=== PATIENT | male | born 1960 | race American Indian/Alaskan Native ===

== ENCOUNTER 2017-03-23 21:29 | Emergency (ER) | payer BC, MEDICAID, OTHER ==
[2017-03-23] MEDS ORDERED: LORazepam 0.5 MG Tab PO ONE (21:30)
[2017-03-23 21:47] VITALS: BP 152/99
--- NOTE | 2017-03-23 22:38 | EDM.PDOC ---
ED HPI GENERAL MEDICAL PROBLEM - General Chief Complaint: Respiratory Problem Stated Complaint: HARD TO BREATH, [id number] Time Seen by Provider: 03/23/17 22:35 Source of Information: Reports: Patient History Limitations: Reports: No Limitations - History of Present Illness INITIAL COMMENTS - FREE TEXT/NARRATIVE: states tonight been feeling chest tightness and hard to breath denies prior h/o but had Fhx panic attacks. did feel similar 1 week ago was seen Dx with sinus given Rx felt somewhat better but tonight it feels different. Neck Pain Score (Numeric/FACES): 3 - Related Data Allergies Allergy/AdvReac Type Severity Reaction Status Date / Time duloxetine HCl Allergy Diarrhea Verified 03/23/17 21:47 [From Cymbalta] Home Meds: Home Meds Hydrochlorothiazide [Hydrochlorothiazide] 25 mg PO DAILY 07/06/14 [History] Lisinopril [Lisinopril] 40 mg PO DAILY 07/06/14 [History] Metoprolol Succinate [Toprol XL] 25 mg PO DAILY 07/06/14 [History] Amoxicillin/Potassium Clav [Amox-Clav 500-125 mg Tablet] 1 tab PO DAILY [History] Aspirin 81 mg PO DAILY 08/30/15 [History] Past Medical History - Past Health History Medical/Surgical History: Denies Medical/Surgical History Social & Family History - Tobacco Use Smoking Status *Q: Current Every Day Smoker Years of Tobacco use: 44 Packs/Tins Daily: 20 Used Tobacco, but Quit: No Second Hand Smoke Exposure: Yes - Caffeine Use Caffeine Use: Reports: Coffee, Soda - Alcohol Use Days Per Week of Alcohol Use: 0 - Recreational Drug Use Recreational Drug Use: No ED ROS GENERAL - Review of Systems Review Of Systems: ROS reveals no pertinent complaints other than HPI. ED EXAM, GENERAL - Physical Exam Exam: See Below Exam Limited By: No Limitations General Appearance: Alert, WD/WN, Anxious, Mild Distress Eye Exam: Bilateral Eye: PERRL (pupils ER @ 4mm) Ears: Hearing Grossly Normal Throat/Mouth: Normal Voice, No Airway Compromise Head: Atraumatic Neck: Non-Tender, Full Range of Motion Respiratory/Chest: No Respiratory Distress, No Accessory Muscle Use, Rhonchi Cardiovascular: Regular Rate, Rhythm GI/Abdominal: Soft, Non-Tender Neurological: Alert, Oriented, Normal Cognition, Normal Gait, No Motor/Sensory Deficits Psychiatric: Anxious Skin Exam: Warm, Dry, Normal Color Lymphatic: No Adenopathy Course - Vital Signs Last Recorded V/S: Last Vital Signs Temp 36.4 C 03/23/17 21:34 Pulse 83 03/23/17 21:34 Resp 20 03/23/17 21:34 BP 152/99 H 03/23/17 21:34 Pulse Ox 98 03/23/17 21:34 - Orders/Labs/Meds Orders: Active Orders 24 hr Category Date Time Status EKG 12 Lead [EKG Documentation Completion] [RC] STAT Care 03/23/17 22:34 Active Labs: Laboratory Tests 03/23/17 03/23/17 03/23/17 Range/Units 22:40 22:40 22:40 WBC 8.7 (5.0-10.0) 10^3/uL RBC 4.14 L (4.6-6.2) 10^6/uL Hgb 14.1 (14.0-18.0) g/dL Hct 40.6 (40.0-54.0) % MCV 98.1 (80-100) fL MCH 34.1 H (27.0-34.0) pg MCHC 34.7 (33.0-35.0) g/dL Plt Count 219 (150-450) 10^3/uL Neut % (Auto) 61.5 (42.2-75.2) % Lymph % (Auto) 26.0 (20.5-50.1) % [place] % (Auto) 10.4 H (2-8) % Eos % (Auto) 1.8 (1.0-3.0) % Baso % (Auto) 0.3 (0.0-1.0) % Add Manual Diff Yes Neutrophils % (Manual) 58 (42-75) % Band Neutrophils % 5 % Lymphocytes % (Manual) 26 (20-50) % Atypical Lymphs % 0 % Monocytes % (Manual) 7 (2-8) % Eosinophils % (Manual) 4 H (1-3) % Basophils % (Manual) 0 D-Dimer, Quantitative < 100 (0-400) ng/mL Sodium 129 L (135-145) mmol/L Potassium 3.4 L (3.6-5.0) mmol/L Chloride 86 L (101-111) mmol/L Carbon Dioxide 31.0 (21.0-31.0) mmol/L Anion Gap 15.4 BUN 9 (7-18) mg/dL Creatinine 0.9 (0.6-1.3) mg/dL Est Cr Clr Drug Dosing 96.12 mL/min Estimated GFR (MDRD) > 60 BUN/Creatinine Ratio 10.00 Glucose 113 H (74-105) mg/dL Calcium 9.7 (8.4-10.2) mg/dl Total Bilirubin 0.6 (0.2-1.0) mg/dL AST 38 (10-42) IU/L ALT 36 (10-60) IU/L Alkaline Phosphatase 53 (42-121) IU/L Troponin I < 0.02 (0.00-0.02) ng/ml Total Protein 7.0 (6.7-8.2) g/dl Albumin 4.2 (3.2-5.5) g/dl Globulin 2.8 Albumin/Globulin Ratio 1.50 - Re-Assessments/Exams Free Text/Narrative Re-Assessment/Exam: 03/23/17 23:54 results discussed with pt who is feeling much better now. Departure - Departure Time of Disposition: 23:54 Disposition: Home, Self-Care 01 Condition: Good Clinical Impression: Sinusitis Qualifiers: Sinusitis location: sphenoidal Chronicity: unspecified Qualified Code(s): J32.3 - Chronic sphenoidal sinusitis Insomnia Qualifiers: Insomnia type: other insomnia Qualified Code(s): G47.09 - Other insomnia - Discharge Information Instructions: Sinusitis, Adult, [id number] Forms: ED Department Discharge Additional Instructions: 1) rest and sleep as much as possible 2) take tylenol or motrin for fever and chills 3) follow up at clinic or recheck as needed rx given; atarax 25mg hs prn x 6 - My Orders Last 24 Hours: My Active Orders 03/23/17 22:34 EKG 12 Lead [EKG Documentation Completion] [RC] STAT - Assessment/Plan Last 24 Hours: My Active Orders 03/23/17 22:34 EKG 12 Lead [EKG Documentation Completion] [RC] STAT
[2017-03-23 23:03] LABS: CHLORIDE,CL 86 mmol/L (101-111); SODIUM,NA 129 mmol/L (135-145)
[2017-03-23] MEDS ORDERED: LORazepam 0.5 MG Tab ONE (23:57)
--- NOTE | 2017-03-25 11:00 | EKG ---
03/23/2017 - HINA GRIMES - TIME: 2238 hours. FINDINGS: EKG shows normal sinus rhythm. Rate is 76 per minute. [facility] /[id number]
== END 2017-03-24 | disposition home or self-care (01) ==
LOC: DL.ED 21:29
DX: J32.3 Chronic sphenoidal sinusitis (principal); G47.09 Other insomnia; F17.210 Nicotine dependence, cigarettes, uncomplicated; Z79.899 Other long term (current) drug therapy; Z88.8 Allergy status to other drugs, medicaments and biological substances; Z79.82 Long term (current) use of aspirin
CPT/HCPCS: 36415; 71020; 80053; 84484; 85025; 85379; 93005; 99285; A9270

== ENCOUNTER 2019-05-04 08:09 | Emergency (ER) | payer MEDICAID, OTHER ==
[2019-05-04 08:21] VITALS: PULSE 80
[2019-05-04 08:23] VITALS: BP 149/99
--- NOTE | 2019-05-04 08:27 | EDM.PDOC ---
ED HPI GENERAL MEDICAL PROBLEM - General Chief Complaint: General Stated Complaint: BRUISED RIB LEFT SIDE Time Seen by Provider: 05/04/19 08:15 Source of Information: Reports: Patient History Limitations: Reports: No Limitations - History of Present Illness INITIAL COMMENTS - FREE TEXT/NARRATIVE: This 58 yo male patient reports to the ED with left rib pain. The patient reports he has fallen on the ice 2 times over the past 24 hours. The patient reports last night when he fell, he landed on his left arm and has been experiencing increased left rib pain since that time. The patient has taken his gabapentin and ibuprofen (800 mg) with little to no symptom relief. The patient reports his arthritis has been very bad lately. The patient denies any loss of consciousness before, during or after the fall. 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 Left Pain Score (Numeric/FACES): 6 - Related Data Allergies Allergy/AdvReac Type Severity Reaction Status Date / Time duloxetine HCl Allergy Diarrhea Verified 05/04/19 08:21 [From Cymbalta] Home Meds: Home Meds Hydrochlorothiazide 25 mg PO DAILY 07/06/14 [History] Lisinopril 40 mg PO DAILY 07/06/14 [History] Metoprolol Succinate [Toprol XL] 25 mg PO DAILY 07/06/14 [History] Aspirin 81 mg PO DAILY 08/30/15 [History] Ibuprofen 800 mg PO Q8H 05/04/19 [History] Past Medical History - Past Health History Medical/Surgical History: Denies Medical/Surgical History Social & Family History - Caffeine Use Caffeine Use: Reports: Coffee, Soda ED ROS GENERAL - Review of Systems Review Of Systems: Comprehensive ROS is negative, except as noted in HPI. ED EXAM, GENERAL - Physical Exam Exam: See Below Exam Limited By: No Limitations General Appearance: Alert, WD/WN, Moderate Distress, Thin Eye Exam: Bilateral Eye: EOMI, Normal Inspection, PERRL Ears: Normal External Exam, Normal Canal, Hearing Grossly Normal, Normal TMs Nose: Normal Inspection, Normal Mucosa, No Blood Throat/Mouth: Normal Inspection, Normal Lips, Normal Teeth, Normal Gums, Normal Oropharynx, Normal Voice, No Airway Compromise Head: Atraumatic, Normocephalic Neck: Normal Inspection, Supple, Non-Tender, Full Range of Motion Respiratory/Chest: Normal Breath Sounds, No Accessory Muscle Use, Other (left lateral rib pain) Cardiovascular: Normal Peripheral Pulses, Regular Rate, Rhythm, No Edema, No Gallop, No JVD, No Murmur, No Rub GI/Abdominal: Normal Bowel Sounds, Soft, Non-Tender, No Organomegaly, No Distention, No Abnormal Bruit, No Mass (Male) Exam: Deferred Rectal (Males) Exam: Deferred Back Exam: Normal Inspection, Full Range of Motion, NT Extremities: Normal Inspection, Normal Range of Motion, Non-Tender, Normal Capillary Refill, No Pedal Edema Neurological: Alert, Oriented, CN II-XII Intact, Normal Cognition, Normal Gait, Normal Reflexes, No Motor/Sensory Deficits Psychiatric: Normal Affect, Normal Mood Skin Exam: Warm, Dry, Intact, Normal Color, No Rash Lymphatic: No Adenopathy Course - Vital Signs Last Recorded V/S: Last Vital Signs Temp 35.9 C 05/04/19 08:15 Pulse 80 05/04/19 08:15 Resp 20 05/04/19 08:15 BP 149/99 H 05/04/19 08:22 Pulse Ox 95 05/04/19 08:15 Departure - Departure Time of Disposition: 08:55 Disposition: Home, Self-Care 01 Condition: Fair Clinical Impression: Contusion of rib on left side Qualifiers: Encounter type: initial encounter Qualified Code(s): S20.212A - Contusion of left front wall of thorax, initial encounter - Discharge Information *PRESCRIPTION DRUG MONITORING PROGRAM REVIEWED*: Not Applicable *COPY OF PRESCRIPTION DRUG MONITORING REPORT IN PATIENT QIAN: Not Applicable Instructions: Chest Contusion, Adult, [id number] Forms: ED Department Discharge Care Plan Goals: The patient was advised of the examination and x-ray results during the visit. The patient was discharged with a script for Flexeril (10 mg) #20 to take 1 by mouth every 6 hours as needed for muscle spasms. The patient may continue to take ibuprofen as directed. If the patient has any additional symptoms or concerns, the patient should either return to the emergency department or visit his primary care facility.
== END 2019-05-04 09:00 | disposition home or self-care (01) ==
LOC: DL.ED 08:09
DX: S20.212A Contusion of left front wall of thorax, initial encounter (principal); Z88.8 Allergy status to other drugs, medicaments and biological substances; Z79.82 Long term (current) use of aspirin; W00.0XXA Fall on same level due to ice and snow, initial encounter; Y92.009 Unspecified place in unspecified non-institutional (private) residence as the place of occurrence of the external cause
CPT/HCPCS: 71101-LT; 99282; 99283-25

== ENCOUNTER 2020-01-28 16:52 | Emergency (ER) | payer MEDICAID, OTHER ==
[2020-01-28 17:14] VITALS: BP 166/116; PULSE 80
--- NOTE | 2020-01-28 17:29 | EDM.PDOC ---
<Papi Naranjo - Last Filed: 01/28/20 19:02> ED HPI GENERAL MEDICAL PROBLEM - General Chief Complaint: General Stated Complaint: LOW MAGNESIUM [id number] Time Seen by Provider: 01/28/20 17:20 Source of Information: Reports: Patient History Limitations: Reports: No Limitations - History of Present Illness INITIAL COMMENTS - FREE TEXT/NARRATIVE: This 59 yo male patient reports to the ED under the direction of his retail department reset. According to the patient, his retail department reset marisa 11 tubes of blood today. The retail department reset called him on his way home and advised him that his magnesium level was "critically low" and that he should go to the nearest ED for a magnesium infusion. The patient called the [facility] to let them know what was happening and the [facility] called the ED, but no specific lab results were relayed to the patient, to the [facility] or to the ED. Onset: Today Duration: Minutes: Location: Reports: Other Quality: Reports: Other Severity: Mild Improves with: Reports: None Worsens with: Reports: None Context: Reports: Other Associated Symptoms: Reports: Other - Related Data Allergies Allergy/AdvReac Type Severity Reaction Status Date / Time duloxetine HCl Allergy Diarrhea Verified 01/28/20 17:11 [From Cymbalta] Home Meds: Home Meds Hydrochlorothiazide 25 mg PO DAILY 07/06/14 [History] Lisinopril 40 mg PO DAILY 07/06/14 [History] Metoprolol Succinate [Toprol XL] 25 mg PO DAILY 07/06/14 [History] Aspirin 81 mg PO DAILY 08/30/15 [History] Ibuprofen 800 mg PO Q8H 05/04/19 [History] Past Medical History - Past Health History Medical/Surgical History: Denies Medical/Surgical History HEENT History: Reports: Impaired Vision Cardiovascular History: Reports: Hypertension Respiratory History: Reports: COPD Gastrointestinal History: Reports: GERD Genitourinary History: Reports: None Musculoskeletal History: Reports: Arthritis Neurological History: Reports: Neuropathy, Peripheral Psychiatric History: Reports: None Endocrine/Metabolic History: Reports: None Hematologic History: Reports: None Immunologic History: Reports: None Oncologic (Cancer) History: Reports: None Dermatologic History: Reports: None - Infectious Disease History Infectious Disease History: Reports: Hepatitis A - Past Surgical History Head Surgeries/Procedures: Reports: None Social & Family History - Family History Family Medical History: Noncontributory - Tobacco Use Smoking Status *Q: Heavy Tobacco Smoker Years of Tobacco use: 45 Packs/Tins Daily: 1 - Caffeine Use Caffeine Use: Reports: Soda - Alcohol Use Days Per Week of Alcohol Use: 3 Number of Drinks Per Day: 3 Total Drinks Per Week: 9 - Recreational Drug Use Recreational Drug Use: No ED ROS GENERAL - Review of Systems Review Of Systems: Comprehensive ROS is negative, except as noted in HPI. ED EXAM, GENERAL - Physical Exam Exam: See Below Exam Limited By: No Limitations General Appearance: Alert, WD/WN, No Apparent Distress Eye Exam: Bilateral Eye: EOMI, Normal Inspection, PERRL Ears: Normal External Exam, Normal Canal, Hearing Grossly Normal, Normal TMs Nose: Normal Inspection, Normal Mucosa, No Blood Throat/Mouth: Normal Inspection, Normal Lips, Normal Teeth, Normal Gums, Normal Oropharynx, Normal Voice, No Airway Compromise Head: Atraumatic, Normocephalic Neck: Normal Inspection, Supple, Non-Tender, Full Range of Motion Respiratory/Chest: No Respiratory Distress, Lungs Clear, Normal Breath Sounds, No Accessory Muscle Use, Chest Non-Tender Cardiovascular: Normal Peripheral Pulses, Regular Rate, Rhythm, No Edema, No Gallop, No JVD, No Murmur, No Rub GI/Abdominal: Normal Bowel Sounds, Soft, Non-Tender, No Organomegaly, No Distention, No Abnormal Bruit, No Mass (Male) Exam: Deferred Rectal (Males) Exam: Deferred Back Exam: Normal Inspection, Full Range of Motion, NT Extremities: Normal Inspection, Normal Range of Motion, Non-Tender, Normal Capillary Refill, No Pedal Edema Neurological: Alert, Oriented, CN II-XII Intact, Normal Cognition, Normal Gait, Normal Reflexes, No Motor/Sensory Deficits Psychiatric: Normal Affect, Normal Mood Skin Exam: Warm, Dry, Intact, Normal Color, No Rash Lymphatic: No Adenopathy Departure - Departure Disposition: Home, Self-Care 01 Clinical Impression: Hypomagnesemia - Discharge Information Instructions: Hypomagnesemia Forms: ED Department Discharge Additional Instructions: Follow-up with your primary care provider tomorrow Sepsis Event Note (ED) - Evaluation Sepsis Screening Result: No Definite Risk <Tatum Celis - Last Filed: 01/28/20 23:33> Course - Vital Signs Last Recorded V/S: Last Vital Signs Temp 97.5 F 01/28/20 17:12 Pulse 80 01/28/20 17:12 Resp 16 01/28/20 17:12 BP 166/116 H 01/28/20 17:12 Pulse Ox 95 01/28/20 17:12 - Orders/Labs/Meds Labs: Laboratory Tests 01/28/20 01/28/20 01/28/20 Range/Units 17:30 17:30 23:03 WBC 6.7 (5.0-10.0) 10^3/uL RBC 4.87 (4.6-6.2) 10^6/uL Hgb 17.3 D (14.0-18.0) g/dL Hct 49.8 (40.0-54.0) % MCV 102.3 H D (80-100) fL MCH 35.5 H (27.0-34.0) pg MCHC 34.7 (33.0-35.0) g/dL Plt Count 126 L D (150-450) 10^3/uL Neut % (Auto) 65.2 (42.2-75.2) % Lymph % (Auto) 22.0 (20.5-50.1) % [place] % (Auto) 10.6 H (2-8) % Eos % (Auto) 1.9 (1.0-3.0) % Baso % (Auto) 0.3 (0.0-1.0) % Sodium 140 (136-145) mmol/L Potassium 3.7 (3.5-5.1) mmol/L Chloride 101 (98-107) mmol/L Carbon Dioxide 32 (21-32) mmol/L Anion Gap 10.7 (7-13) mEq/L BUN 16 (7-18) mg/dL Creatinine 0.86 (0.70-1.30) mg/dL Est Cr Clr Drug Dosing 95.49 mL/min Estimated GFR (MDRD) > 60 BUN/Creatinine Ratio 18.6 (No establ ref range) Glucose 95 (74-99) mg/dL Calcium 8.2 L (8.5-10.1) mg/dL Magnesium 0.9 L 2.2 (1.8-2.4) mg/dL Total Bilirubin 0.8 (0.2-1.0) mg/dL AST 45 H (15-37) U/L ALT 44 (16-63) U/L Alkaline Phosphatase 84 (46-116) U/L Total Protein 6.6 (6.4-8.2) g/dL Albumin 3.2 L (3.4-5.0) g/dL Globulin 3.4 Albumin/Globulin Ratio 0.94 Meds: Medications Discontinued Medications Generic Name Dose Route Start Last Admin Trade Name Freq PRN Reason Stop Dose Admin Magnesium Sulfate 2 gm/ Premix 50 mls @ 25 mls/hr 01/28/20 18:25 01/28/20 18:43 IV 01/28/20 20:24 25 mls/hr ONETIME ONE Administration Magnesium Sulfate/Dextrose 2 200 mls @ 100 mls/hr 01/28/20 20:01 01/28/20 20:19 gm/ Premix IV 01/28/20 22:00 100 mls/hr ONETIME ONE Administration Departure - Departure Time of Disposition: 23:32 Condition: Good - Discharge Information *PRESCRIPTION DRUG MONITORING PROGRAM REVIEWED*: No *COPY OF PRESCRIPTION DRUG MONITORING REPORT IN PATIENT QIAN: No Sepsis Event Note (ED) - Focused Exam Vital Signs: Vital Signs Temp Pulse Resp BP Pulse Ox 01/28/20 17:12 97.5 F 80 16 166/116 H 95
[2020-01-28 17:55] LABS: ANION GAP 10.7 mEq/L (7-13); CHLORIDE,CL 101 mmol/L (98-107); SODIUM,NA 140 mmol/L (136-145)
[2020-01-28] MEDS ORDERED: Magnesium Sulfate/Water 2 GM in Premix Bag 1 BAG IV ONE (18:25)
[2020-01-28] MEDS ORDERED: Magnesium Sulfate/D5W 2 GM in Premix Bag 1 BAG IV ONE (20:01)
== END 2020-01-28 23:45 | disposition home or self-care (01) ==
LOC: DL.ED 16:52
DX: E83.42 Hypomagnesemia (principal); J44.9 Chronic obstructive pulmonary disease, unspecified; I10 Essential (primary) hypertension; M19.90 Unspecified osteoarthritis, unspecified site; F17.210 Nicotine dependence, cigarettes, uncomplicated; Z88.8 Allergy status to other drugs, medicaments and biological substances; Z79.82 Long term (current) use of aspirin; Z79.899 Other long term (current) drug therapy
CPT/HCPCS: 36415; 80053; 83735; 85025; 96365; 96366; 99282-25; J3475

== ENCOUNTER 2021-12-04 10:32 | Emergency (ER) | payer MEDICARE, MEDICAID ==
[2021-12-04 11:00] VITALS: BP 130/90; PULSE 89
[2021-12-04] MEDS ORDERED: Sodium Chloride 0.9% 1,000 ML IV ONE ×3 (11:12→13:50)
[2021-12-04] MEDS ORDERED: Sodium Chloride 0.9% 10 ML Syringe FLUSH PRN (11:12)
[2021-12-04] MEDS ORDERED: Ondansetron 4 MG/2 ML SDV IVPUSH ONE (11:18)
[2021-12-04] MEDS ORDERED: HYDROmorphone 0.5 MG/0.5 ML Syringe IVPUSH ONE (11:18)
[2021-12-04 12:03] LABS: ANION GAP 15.2 mEq/L (7-13)
[2021-12-04 12:11] LABS: CORONAVIRUS COVID-19 NAA NEGATIVE (NEGATIVE)
[2021-12-04] MEDS ORDERED: Lidocaine 2% Jelly 10 ML Urojet ONE (13:24)
[2021-12-04] MEDS ORDERED: Nicotine 14 MG/24 Hr Patch TRDERM ONE (14:34)
== END 2021-12-04 15:00 | disposition home or self-care (01) ==
LOC: DL.ED 10:32
DX: K56.609 Unspecified intestinal obstruction, unspecified as to partial versus complete obstruction (principal); N17.9 Acute kidney failure, unspecified; J44.9 Chronic obstructive pulmonary disease, unspecified; I10 Essential (primary) hypertension; Z88.8 Allergy status to other drugs, medicaments and biological substances; Z79.82 Long term (current) use of aspirin; Z79.899 Other long term (current) drug therapy; Z20.822 Contact with and (suspected) exposure to COVID-19
CPT/HCPCS: 0240U; 36415; 43752; 71045; 74176; 80053; 81001; 83605; 83690; 83735; 85025; 86140; 87086; 96361; 96374; 96375; 99285-25; A9270-GY; J1170; J2405; J3490; J7030

== ENCOUNTER 2021-12-11 11:58 | Emergency (ER) | payer MEDICARE, MEDICAID ==
[2021-12-11] MEDS ORDERED: Sodium Chloride 0.9% 10 ML Syringe FLUSH PRN (12:10)
[2021-12-11] MEDS ORDERED: Ondansetron 4 MG/2 ML SDV IV ONE ×2 (12:19→13:45)
[2021-12-11] MEDS ORDERED: Sodium Chloride 0.9% 1,000 ML IV ONE ×2 (12:19→13:21)
[2021-12-11] MEDS ORDERED: HYDROmorphone 1 MG/ML Syringe IVPUSH ONE (12:19)
[2021-12-11 13:07] LABS: PTT,PARTIAL THROMBOPLSTIN TIME 22.1 SEC (22.0-34.0)
[2021-12-11 13:15] LABS: ANION GAP 20.6 mEq/L (7-13); CHLORIDE,CL 84 mmol/L (98-107); SODIUM,NA 132 mmol/L (136-145)
[2021-12-11 13:17] LABS: ESTIMATED GFR 22 mL/min (>=60)
[2021-12-11] MEDS ORDERED: Piperacillin/Tazobactam 4.5 GM in Sodium Chloride 0.9% 100 ML IV ONE (13:17)
[2021-12-11] MEDS ORDERED: Piperacillin/Tazobactam 3.375 GM in Sodium Chloride 0.9% 100 ML IV ONE (13:19)
[2021-12-11] MEDS ORDERED: Magnesium Sulfate/Water 2 GM in Premix Bag 1 BAG IV ONE (13:21)
[2021-12-11] MEDS ORDERED: Norepinephrine 4 MG in Dextrose 5% in Water 246 ML IV SCH ×2 (13:30)
[2021-12-11] MEDS ORDERED: Albuterol/Ipratropium 3.0-0.5 MG/3 ML Neb Soln NEB ONE (13:46)
[2021-12-11] MEDS ORDERED: Ondansetron 4 MG/2 ML SDV ONE (13:46)
[2021-12-11 14:10] VITALS: BP 70/26; PULSE 94
[2021-12-11] MEDS ORDERED: Midazolam 1 MG/ML 2 ML SDV IVPUSH ONE (15:05)
[2021-12-11 16:26] LABS: CORONAVIRUS COVID-19 NAA NEGATIVE (NEGATIVE); RESPIRATORY SYNCYTIAL VIR NAA NEGATIVE (NEGATIVE)
== END 2021-12-11 16:30 ==
LOC: DL.ED 11:58
DX: A41.9 Sepsis, unspecified organism (principal); R65.21 Severe sepsis with septic shock; N17.9 Acute kidney failure, unspecified; K56.609 Unspecified intestinal obstruction, unspecified as to partial versus complete obstruction; I10 Essential (primary) hypertension; Z88.8 Allergy status to other drugs, medicaments and biological substances; Z79.82 Long term (current) use of aspirin; Z79.899 Other long term (current) drug therapy; Z87.891 Personal history of nicotine dependence
CPT/HCPCS: 0241U; 36415; 71250; 74018; 74176; 80053; 82150; 82947; 83605; 83690; 83735; 84484; 85025; 85610; 85730; 87040; 93005; 96361; 96365; 96366; 96368; 96375; 96376; 99285; J1170; J2405; J2543; J3370; J3475; J3490; J7030; J7050; J7060; 93010; 99284; J7620-GY

== ENCOUNTER 2022-04-20 16:23 | Emergency (ER) | payer MEDICARE, MEDICAID | END 2022-04-20 16:49 | LOC: DL.ED 16:23 | DX: Z53.21 Procedure and treatment not carried out due to patient leaving prior to being seen by health care provider (principal) ==